=== PATIENT | female | born 1970 | race Caucasian/White ===

== ENCOUNTER 2017-12-02 05:45 | Day surgery (SDC) | payer BC ==
[~2017-12-02] VITALS: Ht 154.9 cm; Wt 64.9 kg
[2017-12-02] MEDS ORDERED: LR 1,000 ML IV SCH (07:51)
[2017-12-02] MEDS ORDERED: MORPHINE 4 MG/ML INJ. SYRINGE IVP PRN ×3 (08:00)
[2017-12-02] MEDS ORDERED: METOCLOPRAMIDE HCL 10 MG/2 ML VIAL IVP PRN (08:00)
[2017-12-02] MEDS ORDERED: MIVACURIUM CHLORIDE 20 MG/10 ML VIAL (MIVACRON) INJ ONE (08:45)
[2017-12-02] MEDS ORDERED: SEVOFLURANE 15 MIN GAS INH ONE (08:45)
[2017-12-02] MEDS ORDERED: NS 1000 ML BAG IV ONE (08:45)
[2017-12-02] MEDS ORDERED: ONDANSETRON HCL 4 MG/2 ML VIAL IVP PRN (08:45)
[2017-12-02] MEDS ORDERED: KETOROLAC TROMETHAMINE 30 MG VIAL IVP ONE (08:45)
[2017-12-02] MEDS ORDERED: OXYCODONE/ACETAMINOPHEN 5-325 TABLET PO PRN ×2 (08:45)
[2017-12-02] MEDS ORDERED: MEPERIDINE HCL/PF 100 MG/ML AMP IM ONE (08:45)
[2017-12-02] MEDS ORDERED: ONDANSETRON HCL 4 MG/2 ML VIAL IVP ONE (08:45)
[2017-12-02] MEDS ORDERED: fentaNYL CITRATE/PF 100 MCG/2 ML AMP IVP ONE (08:45)
[2017-12-02] MEDS ORDERED: PROPOFOL 200MG/ 20ML VIAL (DIPRIVAN) IV ONE (08:45)
[2017-12-02] MEDS ORDERED: IBUPROFEN 800 MG TABLET PO PRN (08:45)
[2017-12-02] MEDS ORDERED: MIDAZOLAM HCL 5 MG/ML VIAL (VERSED) IV ONE (08:45)
[2017-12-02] MEDS ORDERED: NS IRRIG SOLN 1000 ML IR ONE (08:45)
[2017-12-02] MEDS ORDERED: LR 1,000 ML IV.SOLN IV ONE (08:45)
[2017-12-02 10:02] VITALS: BP_SYST 127
== END 2017-12-02 10:30 | disposition home or self-care (01) ==
LOC: SDS 05:45 → SMU 05:45 → SDS 10:30
PROVIDERS: ATTEND Obstetrics & Gynecology
DX: N94.6 Dysmenorrhea, unspecified (principal); E55.9 Vitamin D deficiency, unspecified; Z87.898 Personal history of other specified conditions; Z80.51 Family history of malignant neoplasm of kidney; Z79.899 Other long term (current) drug therapy
CPT/HCPCS: 58563; 88305; J7120; J1885; J2175; J2250; J2405; J2704; J3010; J7030

== ENCOUNTER 2018-10-20 05:30 | Day surgery (SDC) | payer BC ==
[~2018-10-20] VITALS: Ht 154.9 cm; Wt 64.4 kg
[2018-10-20] MEDS ORDERED: CEFAZOLIN SOD 1 GM/ ISO 50 ML PREMIX IV ONE (07:00)
[2018-10-20] MEDS ORDERED: GLYCOPYRROLATE 0.2 MG/ML VIAL IJ ONE (07:30)
[2018-10-20] MEDS ORDERED: WATER FOR IRRIGATION,STERILE 1,000 ML IRRIG.SOLN IR ONE (07:30)
[2018-10-20] MEDS ORDERED: LR 1,000 ML IV.SOLN IV ONE (07:30)
[2018-10-20] MEDS ORDERED: ONDANSETRON HCL 4 MG/2 ML VIAL IVP ONE (07:30)
[2018-10-20] MEDS ORDERED: MIDAZOLAM HCL 5 MG/5 ML VIAL IVP ONE (07:30)
[2018-10-20] MEDS ORDERED: LIDOCAINE 2%, 20 ML MDV INJ ONE (07:30)
[2018-10-20] MEDS ORDERED: NS 1000 ML IV.SOLN IV ONE (07:30)
[2018-10-20] MEDS ORDERED: BUPIVACAINE /PF 0.5% 30 ML VIAL INJ ONE (07:30)
[2018-10-20] MEDS ORDERED: KETOROLAC TROMETHAMINE 30 MG VIAL IVP ONE (07:30)
[2018-10-20] MEDS ORDERED: SEVOFLURANE 15 MIN GAS INH ONE (07:30)
[2018-10-20] MEDS ORDERED: NEOSTIGMINE METHYLSULFATE 1 MG/ML, 10 ML VIAL IVP ONE (07:30)
[2018-10-20] MEDS ORDERED: NS IRRIG SOLN 1000 ML IR ONE (07:30)
[2018-10-20] MEDS ORDERED: fentaNYL CITRATE/PF 100 MCG/2 ML AMP IVP ONE (07:30)
[2018-10-20] MEDS ORDERED: KETOROLAC TROMETHAMINE 30 MG VIAL IVP PRN (08:30)
[2018-10-20] MEDS ORDERED: fentaNYL CITRATE/PF 100 MCG/2 ML AMP IVP PRN ×2 (08:30)
[2018-10-20] MEDS ORDERED: ONDANSETRON HCL 4 MG/2 ML VIAL IVP PRN ×2 (08:30→10:30)
[2018-10-20] MEDS ORDERED: IBUPROFEN 800 MG TABLET PO PRN (10:30)
[2018-10-20] MEDS ORDERED: OXYCODONE/ACETAMINOPHEN 5-325 TABLET PO PRN ×2 (10:30)
[2018-10-20 12:28] VITALS: BP_SYST 118
[2018-10-20] MEDS ORDERED: OXYCODONE/ACETAMINOPHEN 5-325 TABLET ONE (13:49)
== END 2018-10-20 14:22 | disposition home or self-care (01) ==
LOC: SMU 05:30 → SDS 05:30
PROVIDERS: ATTEND Obstetrics & Gynecology
DX: D25.2 Subserosal leiomyoma of uterus (principal); N80.0 Endometriosis of uterus; E55.9 Vitamin D deficiency, unspecified; Z98.890 Other specified postprocedural states; Z98.51 Tubal ligation status; Z82.49 Family history of ischemic heart disease and other diseases of the circulatory system; Z80.51 Family history of malignant neoplasm of kidney; Z79.899 Other long term (current) drug therapy
CPT/HCPCS: 36415; 58571; 86886; 86900; 86901; 88307; J0690; J1885; J2001; J2250; J2405; J2710; J3010; J3490 ×2; J7030; J7120; S2900; E0190